=== PATIENT | female | born 1980 | race American Indian/Alaskan Native ===

== ENCOUNTER 2017-02-27 11:25 | Emergency (ER) | payer OTHER ==
[2017-02-27 11:29] VITALS: TEMP 98.2; O2SAT 100
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
[2017-02-27 13:43] VITALS: BP 126/74; PULSE 69; RESP 16
== END 2017-02-27 13:43 | disposition home or self-care (01) ==
LOC: H.ER 11:25
DX: M54.9 Dorsalgia, unspecified (principal); V43.52XA Car driver injured in collision with other type car in traffic accident, initial encounter; Y92.410 Unspecified street and highway as the place of occurrence of the external cause